=== PATIENT | female | born 1980 | race Caucasian/White ===

== ENCOUNTER 2016-05-01 03:52 | Inpatient (IN) | payer MEDICAID ==
[~2016-05-01] VITALS: Ht 154.9 cm; Wt 79.8 kg
[2016-05-01] VITALS (16 sets, daily range): BP systolic 96–127; BP diastolic 46–68
[2016-05-01] MEDS ORDERED: LACTATED RINGER'S 1,000 ML IV SCH (04:14)
[2016-05-01 04:33] LABS: Urine RBC None Seen /hpf (0 - 4)
[2016-05-01 04:41] LABS: Basophils # (auto) 0.1 uL; Basophils % (auto) 0.4 % (0.0-2.0); Eosinophils # (auto) 0.2 uL; Eosinophils % (auto) 1.6 % (0.0-7.0); Lymphocytes # (auto) 2.4 uL; Lymphocytes % (auto) 15.7 % (10.0-50.0); Mean Corpuscular Hemoglobin 29.9 pg (28.0-32.0); Mean Corpuscular Hgb Conc. 33.3 g/dL (32.0-36.0); Mean Corpuscular Volume 89.9 fL (80.0-100.0); Mean Platelet Volume 7.9 fL (7.4-10.4); Monocytes # (auto) 0.9 uL; Monocytes % (auto) 5.6 % (0.0-12.0); Neutrophils # (auto) 11.8 uL; Neutrophils % (auto) 76.7 % (37.0-80.0); Platelet Count (auto) 374 10^3/uL (140-450); Red Cell Distribution Width 15.4 % (11.6-16.0); White Blood Cell 15.3 10^3/uL (4.4-10.8)
[2016-05-01 04:59] LABS: Albumin 2.7 g/dL (3.4-5.0); BUN/Creatinine Ratio 14.5; Calcium 9.5 mg/dL (8.5-10.1); Potassium 3.7 mmol/L (3.5-5.1)
[2016-05-01 05:02] LABS: Bilirubin, Total 0.3 mg/dL (0.2-1.0); INR 0.96 (0.9-1.15); Partial Thromboplastin Time 26.5 sec (22.64-33.71); Prothrombin Time 9.9 sec (9.37-12.3); Total Protein 7.4 g/dL (6.4-8.2)
[2016-05-01 05:04] LABS: Urine Bilirubin Negative (Negative); Urine Blood Negative /uL (Negative); Urine Color Yellow (Yellow); Urine Glucose Normal (Normal); Urine Ketone Negative (Negative); Urine Nitrite Negative (Negative); Urine Squamous Epithelial Cell FEW /hpf (<5); Urine Urobilinogen Normal (Negative)
[2016-05-01] MEDS ORDERED: SUCCINYLCHOLINE CHLORIDE 20 MG/ML 10ML VIAL IV ONE (07:39)
[2016-05-01] MEDS ORDERED: TETRACAINE 1% INJ 2 ML VIAL IJ ONE ×2 (07:39→07:40)
[2016-05-01] MEDS ORDERED: fentaNYL CITRATE 100 MCG/2 ML VL ONE (07:52)
[2016-05-01] MEDS ORDERED: ceFAZolin 1GM VL ONE (07:52)
[2016-05-01] MEDS ORDERED: OXYTOCIN 10 UNIT/ML 10ML VIAL ONE (07:52)
[2016-05-01] MEDS ORDERED: MORPHINE SULF(PF) 0.5MG/ML 10ML VIAL ONE (07:52)
[2016-05-01] MEDS ORDERED: SODIUM CHLORIDE LOCK 20 ML ONE (07:52)
[2016-05-01] MEDS ORDERED: MIDAZOLAM HCL 1MG/1ML-2 ML VIAL ONE (07:52)
[2016-05-01] MEDS ORDERED: ePHEDrine SULFATE 50 MG/ML AMP ONE (07:52)
[2016-05-01] MEDS ORDERED: ONDANSETRON HCL 4 MG/2 ML VIAL ONE (07:52)
[2016-05-01] MEDS ORDERED: ONDANSETRON HCL 4 MG/2 ML VIAL IV PRN (09:15)
[2016-05-01] MEDS ORDERED: OXYTOCIN 10UNIT/ML 1ML VIAL ONE (09:20)
[2016-05-01] MEDS ORDERED: PROMETHAZINE HCL 25 MG/ML 1ML IM ONE (09:30)
[2016-05-01] MEDS ORDERED: HYDROmorphone HCL 2 MG/ML VL IV PRN (09:30)
[2016-05-01] MEDS ORDERED: KETOROLAC TROMETH 30 MG/ML 1ML VIAL IV ONE (09:30)
[2016-05-01] MEDS ORDERED: diphenhdrAMINE HCL 50 MG/1 ML VL IV PRN (09:30)
[2016-05-01] MEDS ORDERED: NALOXONE HCL 0.4 MG/ML VIAL IV PRN (09:30)
[2016-05-01] MEDS: KETOROLAC TROMETH 30 MG/ML 1ML VIAL IV SCH ×2 (12:29→17:57)
[2016-05-01] MEDS: HYDROmorphone HCL 2 MG/ML VL IV PRN (14:46)
[2016-05-01] MEDS: ceFAZolin 1GM/50ML D5W 50 ML IV SCH ×2 (14:48→21:50)
[2016-05-01] MEDS: LACTATED RINGER'S 1,000 ML IV SCH ×2 (17:00→23:30)
[2016-05-02 03:15] VITALS: BP 101/57
[2016-05-02] MEDS: KETOROLAC TROMETH 30 MG/ML 1ML VIAL IV SCH (03:25)
[2016-05-02] MEDS: ceFAZolin 1GM/50ML D5W 50 ML IV SCH (05:45)
[2016-05-02 06:29] LABS: Basophils # (auto) 0 uL; Basophils % (auto) 0.2 % (0.0-2.0); Eosinophils # (auto) 0.1 uL; Eosinophils % (auto) 0.9 % (0.0-7.0); Hematocrit 29.8 % (36.0-46.0); Lymphocytes # (auto) 1.5 uL; Lymphocytes % (auto) 10.2 % (10.0-50.0); Mean Corpuscular Hemoglobin 29.7 pg (28.0-32.0); Mean Corpuscular Hgb Conc. 33.4 g/dL (32.0-36.0); Mean Corpuscular Volume 88.9 fL (80.0-100.0); Mean Platelet Volume 7.7 fL (7.4-10.4); Monocytes # (auto) 0.8 uL; Monocytes % (auto) 5.1 % (0.0-12.0); Neutrophils # (auto) 12.3 uL; Neutrophils % (auto) 83.6 % (37.0-80.0); Platelet Count (auto) 298 10^3/uL (140-450); Red Cell Distribution Width 15.5 % (11.6-16.0); White Blood Cell 14.7 10^3/uL (4.4-10.8)
[2016-05-02 07:00] VITALS: BP 115/66
[2016-05-02] MEDS ORDERED: LACTATED RINGER'S 1,000 ML IV SCH (07:03)
[2016-05-02] MEDS: HYDROmorphone HCL 2 MG/ML VL IV PRN (07:25)
[2016-05-02] MEDS: DOCUSATE CALCIUM 240 MG CAP PO SCH (09:34)
[2016-05-02] MEDS: IBUPROFEN 800 MG TAB PO PRN ×2 (11:06→20:01)
[2016-05-02 11:26] VITALS: BP 107/58
[2016-05-02] MEDS: SIMETHICONE 80 MG CHEWABLE TABLET PO SCH ×3 (11:47→21:48)
[2016-05-02] MEDS: HYDROcodone-ACET 5/325MG TAB PO PRN ×2 (15:26→21:10)
[2016-05-02 17:30] VITALS: BP 113/63
[2016-05-02 19:25] VITALS: BP 111/57
[2016-05-02 23:14] VITALS: BP 106/50
[2016-05-03 03:10] VITALS: BP 102/59
[2016-05-03] MEDS: HYDROcodone-ACET 5/325MG TAB PO PRN ×4 (03:21→23:30)
[2016-05-03] MEDS: SIMETHICONE 80 MG CHEWABLE TABLET PO SCH ×4 (05:30→22:21)
[2016-05-03] MEDS: IBUPROFEN 800 MG TAB PO PRN ×2 (05:34→17:25)
[2016-05-03 08:00] VITALS: BP 92/59
[2016-05-03] MEDS: DOCUSATE CALCIUM 240 MG CAP PO SCH (09:40)
[2016-05-03 12:10] VITALS: BP 107/54
[2016-05-03] MEDS: SODIUM CHLOR 0.9% PF (SALINE LOCK) 10ML VIAL IV SCH ×2 (14:12→22:00)
[2016-05-03 16:10] VITALS: BP 98/51
[2016-05-03 19:00] VITALS: BP 85/50
[2016-05-03 23:00] VITALS: BP 118/70
[2016-05-04 03:07] VITALS: BP 95/52
[2016-05-04 03:25] VITALS: BP 85/55
[2016-05-04] MEDS: IBUPROFEN 800 MG TAB PO PRN ×2 (03:25→11:20)
[2016-05-04] MEDS: SODIUM CHLOR 0.9% PF (SALINE LOCK) 10ML VIAL IV SCH ×2 (06:00→14:00)
[2016-05-04] MEDS: SIMETHICONE 80 MG CHEWABLE TABLET PO SCH ×2 (06:40→12:26)
[2016-05-04 07:53] VITALS: BP 106/62
[2016-05-04] MEDS: DOCUSATE CALCIUM 240 MG CAP PO SCH (10:13)
[2016-05-04] MEDS ORDERED: PREN-129 PO (10:48)
[2016-05-04 12:14] VITALS: BP 98/50
[2016-05-04] MEDS ORDERED: MEASLES, MUMPS & RUBELLA VAC(MMRII) 0.5ML SC ONE (12:45)
== END 2016-05-04 13:27 | disposition home or self-care (01) | DRG 540 ==
LOC: OBSVTOIN 03:52 → LDRP 03:52
PROVIDERS: ADMIT Specialist; ATTEND Specialist
PROC: 10D00Z1 Extraction of Products of Conception, Low, Open Approach (ICD-10-PCS; principal; 2016-05-01 08:03)
DX: O34.211 Maternal care for low transverse scar from previous cesarean delivery (principal); F32.9 Major depressive disorder, single episode, unspecified; F41.9 Anxiety disorder, unspecified; O99.344 Other mental disorders complicating childbirth; Z37.0 Single live birth; Z90.49 Acquired absence of other specified parts of digestive tract; Z3A.39 39 weeks gestation of pregnancy; Z23 Encounter for immunization
CPT/HCPCS: 36415; 51702; 59025; 80053; 81001; 81002; 85025; 85610; 85730; 86850; 86870; 86900; 86901; 94762; 96365; 96366; 96372; G0378; G0434; J0330; J0690; J1885; J2250; J2405; J2590